=== PATIENT | male | born 1955 | race Caucasian/White ===

== ENCOUNTER 2016-12-18 09:00 | Day surgery (SDC) | payer OTHER ==
[~2016-12-18] VITALS: Ht 188 cm; Wt 111.1 kg
[~2016-12-18 09:00] MED LIST: 0.9% Sodium Chloride 1,000 ML IV SCH; ASPI-973 PO; GLUC-180 PO; LEVO100C2 PO; LEVO125T6 PO; LISI-567 PO; LOSA100T29 PO; PRED50TA PO; Sodium Chloride LOK Flush 10 mL Syringe IV PRN; fentaNYL-PF 50 mCg/mL 2 mL Inj IVPUSH PRN
[2016-12-18 09:13] VITALS: BP 135/76; PULSE 69; RESP 14; O2SAT 97
[2016-12-18 10:36] VITALS: BP 142/81; PULSE 67; RESP 16; O2SAT 98
--- NOTE | 2016-12-18 10:38 | PCM.ENDCOL ---
Colonoscopy Date of Service: December 18, 2016 Physician Kieran Galvez MD Pre Procedure Diagnosis: Screening family history of colon cancer Post Procedure Dx & Findings: Polyps hemorrhoids Procedure Colonoscopy PROCEDURE IN DETAIL: Prep adequate Withdrawal time 17 minutes After unremarkable rectal examination the Olympus video colonoscope was inserted patient's anal canal and was advanced to cecum. Landmarks were identified including the ileocecal valve and appendiceal orifice. Scope was withdrawn systematically. Visualized colonic mucosa showed healthy shiny mucosa with normal healthy-appearing vasculature. In the cecum, there were total of 2 polyps. They were both less than 1 mm in size. They were both completely using cold forceps. In the ascending colon, there was a 2 mm polyp which was removed completely using cold snare. In the sigmoid colon there was a 4 mm flat polyp which was removed completely using cold snare. In the rectum retroflexion was done which showed hemorrhoids. Anal canal was inspected carefully on the way out and hemorrhoids noted. Impression Polyps 4 status post removal Hemorrhoids Recommendation Repeat colonoscopy 3 years Presedation Assessment Risks and Benefits Informed consent was obtained from the patient after all risks and benefits including but not limited to drug reaction, infection, pain, bleeding, perforation, as well as alternatives were discussed. Patient monitoring Continuous pulse oximetry, cardiac monitoring, blood pressure monitoring, IV access, and oxygen at 2L per nasal cannula. Periprocedural Fentanyl: Fentanyl 100mcg Incrementally Midazolam: Midazolam 5mg Incrementally Complications There were no periprocedural complications identified. Post Procedure Plan Post Procedure Recommendations 1. Restrict activities today. 2. Resume normal activities in the morning. 3. Resume medications. 4. Patient informed of normal post procedure side effects as bloating, drowsiness, blood streaking in the stool. 5. average risk CRCS. If colon polyps come back as: -Hyperplastic- can repeat colonoscopy in 10 years -Tubular adenoma- repeat colonoscopy in 5 years -Tubulovillous/villous adenoma- repeat colonoscopy in 3 years -If any dysplasia- return to clinic as soon as possible 6. Please don't hesitate to call me with any questions. Kieran Galvez MD December 18, 2016 10:38
[2016-12-18 10:46] VITALS: BP 138/79; PULSE 66; RESP 14; O2SAT 98
--- NOTE | 2016-12-19 11:07 | PATH ---
SURGICAL PATHOLOGY Attending Physician:Kieran Galvez M.D. CASE STATUS: Signed Out PATIENT NAME: MADDIE BATISTA PID: [id number] : 1955 DATE COLLECTED:12/18/2016 17:56 SPECIMEN: 1: Colon, Biopsy 2: Colon, Biopsy 3: Colon, Biopsy CLINICAL HISTORY: 1). CECAL POLYP X1 2). ASCENDING POLYP X1 3). SIGMOID POLYP X1 FINAL DIAGNOSIS: 1.CECAL POLYP: TUBULAR ADENOMA INVOLVING SINGLE BIOPSY FRAGMENT. 2.ASCENDING COLON POLYP: TUBULAR ADENOMA. 3.SIGMOID COLON POLYP: HYPERPLASTIC POLYP. ICD10 CODE D12.0 GROSS DESCRIPTION: The specimen is received in three formalin filled containers labeled with the patient's name. 1). The specimen is sublabeled "cecal polyp" and consists of 2 portions of tissue which aggregate to 0.3 x 0.3 x 0.2 CM. The specimen is entirely submitted in cassette 1A. 2). The specimen is sublabeled "ascending polyp" and consists of a 0.3 x 0.3 x 0.2 CM portion of tissue which is entirely submitted in cassette 2A. 3). The specimen is sublabeled "sigmoid polyp" and consists of a 0.5 x 0.4 x 0.3 CM portion of tissue which is entirely submitted in cassette 3A. 12/18/2016 DAC MICRO DESCRIPTION: See diagnosis. ICD-9 CODES: CPT CODES: 1: 19759 2: 30659 3: 43546 Electronically Signed Out Shan Agee MD [facility] Pathology [facility] [address] [facility], [place] [address] Technical component performed at [facility], [facility] [address], [address]
== END 2016-12-18 23:59 | disposition home or self-care (01) ==
LOC: END 09:00
PROVIDERS: ATTEND Internal Medicine
DX: Z12.11 Encounter for screening for malignant neoplasm of colon (principal); Z80.0 Family history of malignant neoplasm of digestive organs; D12.0 Benign neoplasm of cecum; D12.2 Benign neoplasm of ascending colon; K63.5 Polyp of colon; K64.9 Unspecified hemorrhoids; I10 Essential (primary) hypertension; E03.9 Hypothyroidism, unspecified; Z79.82 Long term (current) use of aspirin; Z79.52 Long term (current) use of systemic steroids
CPT/HCPCS: 45380; 45385; 99153; G0500; J7030